=== PATIENT | female | born 1935 | race Caucasian/White ===

== ENCOUNTER 2017-02-06 14:00 | Inpatient (IN) | payer MEDICARE, OTHER ==
[~2017-02-06] VITALS: Ht 167.6 cm; Wt 68.9 kg
[~2017-02-06 14:00] MED LIST: CARB1TAB61 PO; DOXA2TAB2 PO; INSU3INS6 SUBCUT; MAGN400C PO; MIDO5TAB PO; MIRT15TA6 PO; TAMS-11 PO
[2017-02-06 15:00] VITALS: BP 100/52
[2017-02-06] MEDS ORDERED: TRAMADOL 50MG TABLET PO PRN (16:15)
[2017-02-06] MEDS ORDERED: NON FORMULARY PATIENT HOME MED EA XX SCH (16:30)
[2017-02-06] MEDS ORDERED: DEXTROSE 50% WATER 50ML SYRINGE IV PRN (16:45)
[2017-02-06] MEDS: REPAGLINIDE 1MG TABLET PO SCH (17:00)
[2017-02-06] MEDS: MIDODRINE HCL 5MG TABLET PO SCH (17:00)
[2017-02-06] MEDS: INSULIN LISPRO 100 UNITS/ML SUBCUT SCH ×2 (17:00→21:00)
[2017-02-06] MEDS: BLOOD SUGAR DIAGNOSTIC STRIP TEST SCH ×2 (17:18→21:06)
[2017-02-06 17:56] VITALS: BP 100/52
[2017-02-06] MEDS: CARBIDOPA/LEVODOPA 25/100MG TABLET PO SCH (18:19)
[2017-02-06] MEDS: ENTACAPONE 200MG TABLET PO SCH (18:20)
[2017-02-06 20:00] VITALS: BP 144/79
[2017-02-06] MEDS: QUETIAPINE FUMARATE 25MG TABLET PO SCH ×2 (21:00→21:35)
[2017-02-06] MEDS ORDERED: CARBIDOPA/LEVODOPA 25/100MG TABLET CR PO SCH (21:00)
[2017-02-06] MEDS ORDERED: CARBIDOPA/LEVODOPA 25/100MG TABLET PO SCH (21:00)
[2017-02-07 06:28] LABS: BASOPHILS % 0.3 % (0.0-2.0); EOSINOPHILS % 2.6 % (0.0-5.0); HEMATOCRIT. 38.4 % (36.0-48.0); HEMOGLOBIN. 13.1 g/dL (12.0-16.0); LYMPHOCYTES % 21.9 % (20.0-50.0); MEAN CORPUSCULAR HEMOGLOBIN 31.3 pg (28.0-32.0); MEAN PLATELET VOLUME 7.9 fl (7.4-10.4); MONOCYTES % 11.9 % (2.0-8.0); NEUTROPHILS % 63.3 % (40.0-76.0); PLATELET 293 x1000/uL (130-400); RED BLOOD CELL COUNT 4.18 mill/uL (4.2-5.4); RED CELL DISTRIBUTION WIDTH 13.1 % (11.6-14.6)
[2017-02-07] MEDS: BLOOD SUGAR DIAGNOSTIC STRIP TEST SCH ×4 (06:57→21:09)
[2017-02-07] MEDS: INSULIN LISPRO 100 UNITS/ML SUBCUT SCH ×5 (06:58→21:21)
[2017-02-07 07:05] LABS: CARBON DIOXIDE 23 mEq/L (21-32); CHLORIDE 109 mEq/L (98-107)
[2017-02-07 07:46] LABS: VITAMIN B12 SERUM > 2000 pg/mL (211-911)
[2017-02-07 08:07] VITALS: BP 159/84
[2017-02-07] MEDS: FENOFIBRATE NANOCRYSTALLIZED 145MG TABLET PO SCH (09:54)
[2017-02-07] MEDS: ASPIRIN 81MG TABLET PO SCH (09:55)
[2017-02-07] MEDS: CARBIDOPA/LEVODOPA 25/100MG TABLET PO SCH ×3 (09:55→18:11)
[2017-02-07] MEDS: REPAGLINIDE 1MG TABLET PO SCH ×3 (09:55→18:11)
[2017-02-07] MEDS: ENTACAPONE 200MG TABLET PO SCH ×3 (09:56→18:10)
[2017-02-07] MEDS: DOXAZOSIN MESYLATE 2MG TABLET PO SCH (09:56)
[2017-02-07] MEDS: MIDODRINE HCL 5MG TABLET PO SCH ×3 (10:03→18:14)
[2017-02-07] MEDS ORDERED: CARBIDOPA/LEVODOPA 25/100MG TABLET PO NR (13:30)
[2017-02-07] MEDS ORDERED: ENTACAPONE 200MG TABLET PO NR (13:30)
[2017-02-07] MEDS: QUETIAPINE FUMARATE 50MG TABLET PO SCH ×2 (15:42→21:19)
[2017-02-07] MEDS ORDERED: TEMAZEPAM 15MG CAPSULE PO PRN (19:15)
[2017-02-07 20:00] VITALS: BP 103/50
[2017-02-07] MEDS: ATORVASTATIN CALCIUM 20MG TABLET PO SCH (21:18)
[2017-02-07] MEDS: ASCORBIC ACID 500 MG TABLET PO SCH (21:18)
[2017-02-07] MEDS: [UNRECOGNIZED DRUG - OTHER] PO SCH (21:19)
[2017-02-07] MEDS: EZETIMIBE 10MG TABLET PO SCH (21:51)
[2017-02-08] MEDS: BLOOD SUGAR DIAGNOSTIC STRIP TEST SCH ×4 (05:38→21:55)
[2017-02-08] MEDS: INSULIN LISPRO 100 UNITS/ML SUBCUT SCH ×4 (05:39→21:00)
[2017-02-08] MEDS: CARBIDOPA/LEVODOPA 25/100MG TABLET PO SCH ×5 (05:40→17:26)
[2017-02-08 08:00] VITALS: BP 152/76
[2017-02-08] MEDS: ASPIRIN 81MG TABLET PO SCH (08:41)
[2017-02-08] MEDS: MULTIVITAMINS,THER W-MINERALS TABLET PO SCH (08:41)
[2017-02-08] MEDS: MIDODRINE HCL 5MG TABLET PO SCH ×3 (08:41→17:27)
[2017-02-08] MEDS: ASCORBIC ACID 500 MG TABLET PO SCH ×2 (08:41→21:55)
[2017-02-08] MEDS: FENOFIBRATE NANOCRYSTALLIZED 145MG TABLET PO SCH (08:41)
[2017-02-08] MEDS: DOXAZOSIN MESYLATE 2MG TABLET PO SCH (08:41)
[2017-02-08] MEDS: ENTACAPONE 200MG TABLET PO SCH ×6 (08:42→17:43)
[2017-02-08] MEDS: REPAGLINIDE 1MG TABLET PO SCH ×3 (08:42→17:26)
[2017-02-08] MEDS: ZINC SULFATE 220 MG ( 50 ) CAPSULE PO SCH (08:42)
[2017-02-08] MEDS ORDERED: HALOPERIDOL LACTATE 5MG/ML VIAL IM PRN (11:30)
[2017-02-08] MEDS: QUETIAPINE FUMARATE 50MG TABLET PO SCH ×2 (12:15→21:00)
[2017-02-08 20:00] VITALS: BP 129/83
[2017-02-08] MEDS: EZETIMIBE 10MG TABLET PO SCH (21:55)
[2017-02-08] MEDS: ATORVASTATIN CALCIUM 20MG TABLET PO SCH (21:55)
[2017-02-08] MEDS: [UNRECOGNIZED DRUG - OTHER] PO SCH (21:57)
[2017-02-09] MEDS: CARBIDOPA/LEVODOPA 25/100MG TABLET PO SCH ×5 (06:36→17:33)
[2017-02-09] MEDS: BLOOD SUGAR DIAGNOSTIC STRIP TEST SCH ×4 (06:37→21:14)
[2017-02-09] MEDS: INSULIN LISPRO 100 UNITS/ML SUBCUT SCH ×4 (06:49→21:14)
[2017-02-09 08:00] VITALS: BP 134/64
[2017-02-09] MEDS: MULTIVITAMINS,THER W-MINERALS TABLET PO SCH (08:12)
[2017-02-09] MEDS: ASCORBIC ACID 500 MG TABLET PO SCH ×2 (08:12→21:14)
[2017-02-09] MEDS: FENOFIBRATE NANOCRYSTALLIZED 145MG TABLET PO SCH (08:12)
[2017-02-09] MEDS: REPAGLINIDE 1MG TABLET PO SCH ×3 (08:13→17:00)
[2017-02-09] MEDS: ZINC SULFATE 220 MG ( 50 ) CAPSULE PO SCH (08:13)
[2017-02-09] MEDS: ENTACAPONE 200MG TABLET PO SCH ×4 (08:13→17:33)
[2017-02-09] MEDS: ASPIRIN 81MG TABLET PO SCH (08:13)
[2017-02-09] MEDS: DOXAZOSIN MESYLATE 2MG TABLET PO SCH (08:14)
[2017-02-09] MEDS: MIDODRINE HCL 5MG TABLET PO SCH ×3 (08:24→17:33)
[2017-02-09] MEDS: QUETIAPINE FUMARATE 50MG TABLET PO SCH ×2 (14:51→21:14)
[2017-02-09 20:00] VITALS: BP 124/68
[2017-02-09] MEDS: EZETIMIBE 10MG TABLET PO SCH (21:14)
[2017-02-09] MEDS: ATORVASTATIN CALCIUM 20MG TABLET PO SCH (21:14)
[2017-02-09] MEDS: [UNRECOGNIZED DRUG - OTHER] PO SCH (21:15)
[2017-02-10] MEDS: CARBIDOPA/LEVODOPA 25/100MG TABLET PO SCH ×5 (05:10→18:06)
[2017-02-10] MEDS: BLOOD SUGAR DIAGNOSTIC STRIP TEST SCH ×4 (06:20→21:31)
[2017-02-10] MEDS: INSULIN LISPRO 100 UNITS/ML SUBCUT SCH ×4 (06:54→21:31)
[2017-02-10 08:00] VITALS: BP 122/62
[2017-02-10] MEDS: MIDODRINE HCL 5MG TABLET PO SCH ×3 (09:00→18:07)
[2017-02-10] MEDS: ZINC SULFATE 220 MG ( 50 ) CAPSULE PO SCH (09:02)
[2017-02-10] MEDS: FENOFIBRATE NANOCRYSTALLIZED 145MG TABLET PO SCH (09:02)
[2017-02-10] MEDS: MULTIVITAMINS,THER W-MINERALS TABLET PO SCH (09:04)
[2017-02-10] MEDS: ASCORBIC ACID 500 MG TABLET PO SCH ×2 (09:04→21:12)
[2017-02-10] MEDS: REPAGLINIDE 1MG TABLET PO SCH ×3 (09:04→18:07)
[2017-02-10] MEDS: DOXAZOSIN MESYLATE 2MG TABLET PO SCH (09:04)
[2017-02-10] MEDS: ENTACAPONE 200MG TABLET PO SCH ×4 (09:04→18:06)
[2017-02-10] MEDS: ASPIRIN 81MG TABLET PO SCH (09:04)
[2017-02-10] MEDS ORDERED: LACTULOSE 20G/30ML UDC PO NR (10:30)
[2017-02-10] MEDS: QUETIAPINE FUMARATE 50MG TABLET PO SCH ×2 (14:41→21:13)
[2017-02-10 19:00] VITALS: BP 113/53
[2017-02-10 21:08] LABS: CLARITY URINE CLOUDY (CLEAR); COLOR URINE DARK YELLOW (YELLOW); GLUCOSE URINE 3+ (NEGATIVE); KETONES URINE TRACE (NEGATIVE); LEUKOCYTE ESTERASE URINE TRACE (NEGATIVE); NITRITE URINE NEGATIVE (NEGATIVE); OCCULT BLOOD URINE 3+ (NEGATIVE); PROTEIN URINE 1+ (NEGATIVE); SPECIFIC GRAVITY URINE 1.033 (1.005-1.030); UROBILINOGEN URINE 0.2 E.U./dL (0.2-1.0)
[2017-02-10] MEDS: ATORVASTATIN CALCIUM 20MG TABLET PO SCH (21:12)
[2017-02-10] MEDS: EZETIMIBE 10MG TABLET PO SCH (21:13)
[2017-02-10] MEDS: [UNRECOGNIZED DRUG - OTHER] PO SCH (21:15)
[2017-02-10] MEDS ORDERED: CEFTRIAXONE 2 G in DEXTROSE 5% WATER 50 ML IV SCH (22:00)
[2017-02-10] MEDS ORDERED: CEFTRIAXONE 2 G PREMIX 50 ML IV SCH (22:00)
[2017-02-10 23:10] VITALS: BP 113/53
[2017-02-11] VITALS: BP 126/70
[2017-02-11 04:00] VITALS: BP 146/79
== END 2017-02-10 23:20 | disposition short-term general hospital (02) | DRG 56 ==
LOC: 6EST 02-10 23:20
PROVIDERS: ADMIT Psychiatry & Neurology Neurology; ATTEND Psychiatry & Neurology Neurology
DX: G20 Parkinson's disease (principal); E43 Unspecified severe protein-calorie malnutrition; G93.89 Other specified disorders of brain; E11.649 Type 2 diabetes mellitus with hypoglycemia without coma; N39.0 Urinary tract infection, site not specified; R13.10 Dysphagia, unspecified; N31.9 Neuromuscular dysfunction of bladder, unspecified; F02.80 Dementia in other diseases classified elsewhere, unspecified severity, without behavioral disturbance, psychotic disturbance, mood disturbance, and anxiety; J44.9 Chronic obstructive pulmonary disease, unspecified; L89.90 Pressure ulcer of unspecified site, unspecified stage; R47.02 Dysphasia; N30.20 Other chronic cystitis without hematuria; R33.9 Retention of urine, unspecified; R32 Unspecified urinary incontinence; G89.4 Chronic pain syndrome; G47.00 Insomnia, unspecified; G24.9 Dystonia, unspecified; F41.9 Anxiety disorder, unspecified; F29 Unspecified psychosis not due to a substance or known physiological condition; R62.7 Adult failure to thrive; R21 Rash and other nonspecific skin eruption; M19.90 Unspecified osteoarthritis, unspecified site; F32.9 Major depressive disorder, single episode, unspecified; K59.00 Constipation, unspecified; Z87.01 Personal history of pneumonia (recurrent); Z68.24 Body mass index [BMI] 24.0-24.9, adult; Z79.899 Other long term (current) drug therapy; Z90.49 Acquired absence of other specified parts of digestive tract; Z98.49 Cataract extraction status, unspecified eye; Z90.89 Acquired absence of other organs
CPT/HCPCS: 36415; 80048; 81001; 82607; 82962; 84443; 85025; 87086; 92523; 92610; 93970; 97163; 97167; 97530; 97535; A6261; C1893; J0696; J1630; J1815; J7050; J7060

== ENCOUNTER 2017-02-10 23:20 | Inpatient (IN) | payer MEDICARE, OTHER ==
[~2017-02-10] VITALS: Ht 165.1 cm; Wt 68.9 kg
[2017-02-11] VITALS: BP 128/79
[2017-02-11] MEDS ORDERED: DEXTROSE 50% WATER 50ML SYRINGE IV PRN (03:30)
[2017-02-11] MEDS ORDERED: CARBIDOPA/LEVODOPA 25/100MG TABLET PO SCH (06:00)
[2017-02-11] MEDS ORDERED: TRAMADOL 50MG TABLET PO PRN (06:30)
[2017-02-11] MEDS: BLOOD SUGAR DIAGNOSTIC STRIP TEST SCH ×4 (06:40→21:00)
[2017-02-11 08:00] VITALS: BP 127/64
[2017-02-11] MEDS ORDERED: MIDODRINE HCL 5MG TABLET PO SCH (09:00)
[2017-02-11] MEDS ORDERED: DOXAZOSIN MESYLATE 2MG TABLET PO SCH (09:00)
[2017-02-11 09:25] LABS: BASOPHILS % 0.4 % (0.0-2.0); EOSINOPHILS % 0.2 % (0.0-5.0); HEMATOCRIT. 38.5 % (36.0-48.0); LYMPHOCYTES % 8.7 % (20.0-50.0); MEAN CORPUSCULAR VOLUME 91.8 fL (81.0-99.0); MEAN PLATELET VOLUME 8.1 fl (7.4-10.4); MONOCYTES % 4.5 % (2.0-8.0); NEUTROPHILS % 86.2 % (40.0-76.0); PLATELET 317 x1000/uL (130-400); RED CELL DISTRIBUTION WIDTH 13.3 % (11.6-14.6)
[2017-02-11] MEDS: REPAGLINIDE 1MG TABLET PO SCH ×3 (09:25→17:33)
[2017-02-11] MEDS: ASCORBIC ACID 500 MG TABLET PO SCH ×2 (09:27→20:05)
[2017-02-11] MEDS: ASPIRIN 81MG EC TABLET PO SCH (09:27)
[2017-02-11] MEDS: ENTACAPONE 200MG TABLET PO SCH ×4 (09:27→18:48)
[2017-02-11] MEDS: DOXAZOSIN MESYLATE 2MG TABLET PO SCH (09:28)
[2017-02-11] MEDS: MULTIVITAMINS,THER W-MINERALS TABLET PO SCH (09:28)
[2017-02-11] MEDS: MIDODRINE HCL 5MG TABLET PO SCH ×3 (09:29→17:33)
[2017-02-11] MEDS: ZINC SULFATE 220 MG ( 50 ) CAPSULE PO SCH (09:29)
[2017-02-11] MEDS: CARBIDOPA/LEVODOPA 25/100MG TABLET PO SCH ×4 (09:30→18:49)
[2017-02-11] MEDS: FENOFIBRATE NANOCRYSTALLIZED 145MG TABLET PO SCH (09:39)
[2017-02-11 09:50] LABS: CARBON DIOXIDE 26 mEq/L (21-32); CHLORIDE 108 mEq/L (98-107)
[2017-02-11] MEDS: INSULIN LISPRO 100 UNITS/ML SUBCUT SCH ×4 (09:53→21:00)
[2017-02-11 12:00] VITALS: BP 126/70
[2017-02-11] MEDS: QUETIAPINE FUMARATE 50MG TABLET PO SCH ×2 (13:04→20:05)
[2017-02-11 13:46] LABS: VITAMIN B12 SERUM > 2000.0 pg/mL (211-911)
[2017-02-11 16:00] VITALS: BP 118/60
[2017-02-11] MEDS ORDERED: IPRATROPIUM/ALBUTEROL 0.5-3(2.5)MG/3ML NEB HHN PRN (17:30)
[2017-02-11] MEDS ORDERED: VANCOMYCIN 1250MG in DEXTROSE 5% WATER 250ML IV NR (18:00)
[2017-02-11 20:00] VITALS: BP 121/55
[2017-02-11] MEDS: ATORVASTATIN CALCIUM 20MG TABLET PO SCH (20:04)
[2017-02-11] MEDS: EZETIMIBE 10MG TABLET PO SCH (20:05)
[2017-02-11] MEDS: CEFEPIME 1,000 MG in DEXTROSE 5% WATER 50 ML IV SCH (20:07)
[2017-02-11] MEDS: METRONIDAZOLE 500 MG PREMIX 100 ML IV SCH (20:07)
[2017-02-11] MEDS ORDERED: NON FORMULARY PATIENT HOME MED EA XX SCH (21:00)
[2017-02-11] MEDS ORDERED: TEMAZEPAM 15MG CAPSULE PO PRN (21:00)
[2017-02-12] VITALS: BP 141/75
[2017-02-12] MEDS ORDERED: CEFTRIAXONE 2 G in DEXTROSE 5% WATER 50 ML IV SCH ×2
[2017-02-12 04:00] VITALS: BP 120/66
[2017-02-12] MEDS: BLOOD SUGAR DIAGNOSTIC STRIP TEST SCH ×4 (06:08→21:53)
[2017-02-12] MEDS: CARBIDOPA/LEVODOPA 25/100MG TABLET PO SCH ×5 (06:08→19:01)
[2017-02-12 06:57] LABS: BASOPHILS % 0.3 % (0.0-2.0); EOSINOPHILS % 0.7 % (0.0-5.0); HEMATOCRIT. 38.3 % (36.0-48.0); HEMOGLOBIN. 12.7 g/dL (12.0-16.0); LYMPHOCYTES % 8.6 % (20.0-50.0); MEAN CORPUSCULAR VOLUME 93.7 fL (81.0-99.0); MEAN PLATELET VOLUME 8.9 fl (7.4-10.4); MONOCYTES % 5.4 % (2.0-8.0); RED BLOOD CELL COUNT 4.09 mill/uL (4.2-5.4); RED CELL DISTRIBUTION WIDTH 13.4 % (11.6-14.6)
[2017-02-12 07:10] LABS: CARBON DIOXIDE 27 mEq/L (21-32); CHLORIDE 110 mEq/L (98-107)
[2017-02-12 08:00] VITALS: BP 141/71
[2017-02-12] MEDS: INSULIN LISPRO 100 UNITS/ML SUBCUT SCH ×4 (08:08→23:08)
[2017-02-12] MEDS: CEFEPIME 1,000 MG in DEXTROSE 5% WATER 50 ML IV SCH (08:10)
[2017-02-12] MEDS: REPAGLINIDE 1MG TABLET PO SCH ×3 (08:20→19:00)
[2017-02-12] MEDS: ZINC SULFATE 220 MG ( 50 ) CAPSULE PO SCH (08:20)
[2017-02-12] MEDS: MULTIVITAMINS,THER W-MINERALS TABLET PO SCH (08:21)
[2017-02-12] MEDS: ASCORBIC ACID 500 MG TABLET PO SCH ×2 (08:21→22:01)
[2017-02-12] MEDS: FENOFIBRATE NANOCRYSTALLIZED 145MG TABLET PO SCH (08:21)
[2017-02-12] MEDS: MIDODRINE HCL 5MG TABLET PO SCH ×3 (08:22→19:00)
[2017-02-12] MEDS: DOXAZOSIN MESYLATE 2MG TABLET PO SCH (08:22)
[2017-02-12] MEDS: ASPIRIN 81MG EC TABLET PO SCH (08:22)
[2017-02-12] MEDS: ENTACAPONE 200MG TABLET PO SCH ×4 (08:23→19:01)
[2017-02-12] MEDS: METRONIDAZOLE 500 MG PREMIX 100 ML IV SCH (09:18)
[2017-02-12 12:00] VITALS: BP 145/81
[2017-02-12 12:13] LABS: PLATELET 276 x1000/uL (130-400)
[2017-02-12] MEDS: VANCOMYCIN 1 G PREMIX 200 ML IV SCH (13:10)
[2017-02-12] MEDS: QUETIAPINE FUMARATE 50MG TABLET PO SCH ×2 (13:17→21:48)
[2017-02-12] MEDS: MEROPENEM 1,000 MG in SODIUM CHLORIDE 0.9% 100 ML IV SCH ×2 (15:25→23:26)
[2017-02-12 16:00] VITALS: BP 150/69
[2017-02-12 20:00] VITALS: BP 160/83
[2017-02-12] MEDS ORDERED: METRONIDAZOLE 500 MG PREMIX 100 ML IV SCH (21:00)
[2017-02-12] MEDS: EZETIMIBE 10MG TABLET PO SCH (21:48)
[2017-02-12] MEDS: ATORVASTATIN CALCIUM 20MG TABLET PO SCH (21:48)
[2017-02-12] MEDS ORDERED: ENTACAPONE 200MG TABLET PO SCH (22:30)
[2017-02-12] MEDS ORDERED: CARBIDOPA/LEVODOPA 25/100MG TABLET PO SCH (22:30)
[2017-02-13] VITALS: BP 130/64
[2017-02-13 04:00] VITALS: BP 116/68
[2017-02-13 06:00] LABS: BASOPHILS % 0.3 % (0.0-2.0); EOSINOPHILS % 0.4 % (0.0-5.0); HEMATOCRIT. 40.3 % (36.0-48.0); HEMOGLOBIN. 13.1 g/dL (12.0-16.0); MEAN CORPUSCULAR HEMOGLOBIN 30.4 pg (28.0-32.0); MEAN CORPUSCULAR VOLUME 93.8 fL (81.0-99.0); MEAN PLATELET VOLUME 8.3 fl (7.4-10.4); MONOCYTES % 7.9 % (2.0-8.0); NEUTROPHILS % 81.4 % (40.0-76.0); PLATELET 292 x1000/uL (130-400); RED BLOOD CELL COUNT 4.29 mill/uL (4.2-5.4); RED CELL DISTRIBUTION WIDTH 13.5 % (11.6-14.6)
[2017-02-13] MEDS: CARBIDOPA/LEVODOPA 25/100MG TABLET PO SCH ×6 (06:12→17:26)
[2017-02-13 06:13] LABS: CHLORIDE 110 mEq/L (98-107)
[2017-02-13] MEDS: VANCOMYCIN 1 G PREMIX 200 ML IV SCH (06:13)
[2017-02-13] MEDS: MEROPENEM 1,000 MG in SODIUM CHLORIDE 0.9% 100 ML IV SCH ×3 (06:13→22:13)
[2017-02-13 06:22] LABS: CARBON DIOXIDE 25 mEq/L (21-32)
[2017-02-13] MEDS: BLOOD SUGAR DIAGNOSTIC STRIP TEST SCH ×4 (06:37→21:37)
[2017-02-13] MEDS: INSULIN LISPRO 100 UNITS/ML SUBCUT SCH ×4 (07:45→22:00)
[2017-02-13 08:00] VITALS: BP 167/69
[2017-02-13] MEDS ORDERED: ACETAMINOPHEN 650MG/20.3ML UDC PO PRN (08:30)
[2017-02-13] MEDS: ASCORBIC ACID 500 MG TABLET PO SCH ×2 (09:07→21:48)
[2017-02-13] MEDS: MIDODRINE HCL 5MG TABLET PO SCH ×3 (09:07→17:27)
[2017-02-13] MEDS: MULTIVITAMINS,THER W-MINERALS TABLET PO SCH (09:07)
[2017-02-13] MEDS: FENOFIBRATE NANOCRYSTALLIZED 145MG TABLET PO SCH (09:07)
[2017-02-13] MEDS: REPAGLINIDE 1MG TABLET PO SCH ×3 (09:07→17:26)
[2017-02-13] MEDS: ENTACAPONE 200MG TABLET PO SCH ×5 (09:07→17:25)
[2017-02-13] MEDS: ZINC SULFATE 220 MG ( 50 ) CAPSULE PO SCH (09:07)
[2017-02-13] MEDS: DOXAZOSIN MESYLATE 2MG TABLET PO SCH (09:08)
[2017-02-13] MEDS: ASPIRIN 81MG EC TABLET PO SCH (09:08)
[2017-02-13 12:00] VITALS: BP 124/64
[2017-02-13] MEDS: QUETIAPINE FUMARATE 50MG TABLET PO SCH ×2 (13:00→21:49)
[2017-02-13 16:00] VITALS: BP 113/54
[2017-02-13 20:00] VITALS: BP 112/61
[2017-02-13] MEDS ORDERED: CARBIDOPA/LEVODOPA 25/100MG TABLET PO SCH (21:00)
[2017-02-13] MEDS ORDERED: ENTACAPONE 200MG TABLET PO SCH (21:00)
[2017-02-13] MEDS: ATORVASTATIN CALCIUM 20MG TABLET PO SCH (21:49)
[2017-02-13] MEDS: EZETIMIBE 10MG TABLET PO SCH (21:56)
[2017-02-14] VITALS: BP 127/67
[2017-02-14 04:00] VITALS: BP 159/78
[2017-02-14 05:30] LABS: BASOPHILS % 0.3 % (0.0-2.0); EOSINOPHILS % 2.4 % (0.0-5.0); HEMATOCRIT. 38.7 % (36.0-48.0); LYMPHOCYTES % 18.9 % (20.0-50.0); MEAN CORPUSCULAR HEMOGLOBIN 30.9 pg (28.0-32.0); MEAN CORPUSCULAR VOLUME 92.2 fL (81.0-99.0); MEAN PLATELET VOLUME 8.3 fl (7.4-10.4); MONOCYTES % 10.5 % (2.0-8.0); NEUTROPHILS % 67.9 % (40.0-76.0); PLATELET 326 x1000/uL (130-400); RED CELL DISTRIBUTION WIDTH 13.3 % (11.6-14.6)
[2017-02-14] MEDS: MEROPENEM 1,000 MG in SODIUM CHLORIDE 0.9% 100 ML IV SCH ×2 (05:42→13:47)
[2017-02-14] MEDS ORDERED: CARBIDOPA/LEVODOPA 25/100MG TABLET PO SCH (06:00)
[2017-02-14] MEDS ORDERED: ENTACAPONE 200MG TABLET PO SCH (06:00)
[2017-02-14] MEDS: BLOOD SUGAR DIAGNOSTIC STRIP TEST SCH ×3 (07:31→17:20)
[2017-02-14] MEDS: REPAGLINIDE 1MG TABLET PO SCH ×3 (07:53→17:55)
[2017-02-14] MEDS: INSULIN LISPRO 100 UNITS/ML SUBCUT SCH ×3 (07:59→18:09)
[2017-02-14 08:00] VITALS: BP 153/78
[2017-02-14 08:26] LABS: CARBON DIOXIDE 27 mEq/L (21-32); CHLORIDE 108 mEq/L (98-107)
[2017-02-14] MEDS: CARBIDOPA/LEVODOPA 25/100MG TABLET PO SCH ×4 (09:00→17:55)
[2017-02-14] MEDS: DOXAZOSIN MESYLATE 2MG TABLET PO SCH (09:10)
[2017-02-14] MEDS: MIDODRINE HCL 5MG TABLET PO SCH ×3 (09:10→17:55)
[2017-02-14] MEDS: ASCORBIC ACID 500 MG TABLET PO SCH (09:10)
[2017-02-14] MEDS: FENOFIBRATE NANOCRYSTALLIZED 145MG TABLET PO SCH (09:10)
[2017-02-14] MEDS: ZINC SULFATE 220 MG ( 50 ) CAPSULE PO SCH (09:10)
[2017-02-14] MEDS: MULTIVITAMINS,THER W-MINERALS TABLET PO SCH (09:11)
[2017-02-14] MEDS: ASPIRIN 81MG EC TABLET PO SCH (09:11)
[2017-02-14] MEDS: ENTACAPONE 200MG TABLET PO SCH ×4 (09:11→17:55)
[2017-02-14 12:00] VITALS: BP 119/70
[2017-02-14] MEDS: QUETIAPINE FUMARATE 50MG TABLET PO SCH (14:10)
[2017-02-14 16:00] VITALS: BP 127/62
[2017-02-14] MEDS ORDERED: CEFTRIAXONE 1 G PREMIX 50 ML IV SCH (17:00)
[2017-02-14 18:22] VITALS: BP 127/62
== END 2017-02-14 21:08 | DRG 871 ==
LOC: 6EST 23:20
PROVIDERS: ADMIT Internal Medicine Critical Care Medicine; ATTEND Internal Medicine Critical Care Medicine
DX: A41.9 Sepsis, unspecified organism (principal); E43 Unspecified severe protein-calorie malnutrition; J96.00 Acute respiratory failure, unspecified whether with hypoxia or hypercapnia; E11.649 Type 2 diabetes mellitus with hypoglycemia without coma; J44.0 Chronic obstructive pulmonary disease with (acute) lower respiratory infection; G20 Parkinson's disease; F03.90 Unspecified dementia, unspecified severity, without behavioral disturbance, psychotic disturbance, mood disturbance, and anxiety; R13.10 Dysphagia, unspecified; N39.0 Urinary tract infection, site not specified; G25.9 Extrapyramidal and movement disorder, unspecified; G24.9 Dystonia, unspecified; F29 Unspecified psychosis not due to a substance or known physiological condition; F41.9 Anxiety disorder, unspecified; G47.00 Insomnia, unspecified; G89.4 Chronic pain syndrome; I10 Essential (primary) hypertension; K59.00 Constipation, unspecified; L89.90 Pressure ulcer of unspecified site, unspecified stage; R32 Unspecified urinary incontinence; R47.02 Dysphasia; R62.7 Adult failure to thrive; Z16.24 Resistance to multiple antibiotics; Z68.25 Body mass index [BMI] 25.0-25.9, adult; Z90.49 Acquired absence of other specified parts of digestive tract; Z98.49 Cataract extraction status, unspecified eye
CPT/HCPCS: 36415; 70551; 71010; 80048; 80076; 80202; 82607; 82962; 83690; 84443; 85025; 87040; 92610; 97112; 97162; 97166; 97530; C1893; J0692; J0696; J1815; J2185; J3370; J3490; J7050; J7060

== ENCOUNTER 2017-04-16 14:34 | Inpatient (IN) | payer MEDICARE, OTHER ==
[~2017-04-16] VITALS: Ht 160 cm; Wt 57.2 kg
[2017-04-16] MEDS ORDERED: ZET10 PO (14:47)
[2017-04-16] MEDS ORDERED: BENZ1TAB7 PO (14:47)
[2017-04-16] MEDS ORDERED: ATOR20TA65 PO (14:47)
[2017-04-16] MEDS ORDERED: DOCU-138 PO (14:47)
[2017-04-16] MEDS ORDERED: REPA2TAB8 PO (14:47)
[2017-04-16] MEDS ORDERED: LISPRO (14:47)
[2017-04-16] MEDS ORDERED: CARB-32 PO (14:47)
[2017-04-16] MEDS ORDERED: FENO145T19 PO (14:47)
[2017-04-16] MEDS ORDERED: ASPI-1159 PO (14:47)
[2017-04-16] MEDS ORDERED: MIDORINE (14:47)
[2017-04-16] MEDS ORDERED: DOXA2TAB2 PO (14:47)
[2017-04-16] MEDS ORDERED: QUET25TA PO (14:47)
[2017-04-16] MEDS ORDERED: ENTA200T2 PO (14:47)
[2017-04-16] MEDS ORDERED: SODIUM CHLORIDE 0.9% 1,000 ML IV ONE (16:33)
[2017-04-16 16:58] LABS: BASOPHILS % 0.3 % (0.0-2.0); EOSINOPHILS % 0.1 % (0.0-5.0); HEMATOCRIT. 45.4 % (36.0-48.0); LYMPHOCYTES % 7.2 % (20.0-50.0); MEAN CORPUSCULAR HEMOGLOBIN 30.2 pg (28.0-32.0); MEAN CORPUSCULAR VOLUME 91.7 fL (81.0-99.0); MEAN PLATELET VOLUME 8.9 fl (7.4-10.4); MONOCYTES % 5.9 % (2.0-8.0); NEUTROPHILS % 86.5 % (40.0-76.0); PLATELET 224 x1000/uL (130-400); RED BLOOD CELL COUNT 4.95 mill/uL (4.2-5.4)
[2017-04-16 17:03] LABS: CHLORIDE 116 mEq/L (98-107); INR 1.2; PROTHROMBIN TIME 12.3 sec (9.4-11.6)
[2017-04-16 17:05] LABS: CARBON DIOXIDE 24 mEq/L (21-32)
[2017-04-16 17:07] LABS: AMMONIA 19 uMol/L (<32)
[2017-04-16 17:13] LABS: CREATINE KINASE 46 IU/L (26-192); TROPONIN I < 0.02 ng/mL (0.00-0.04)
[2017-04-16 18:07] LABS: BG BASE EXCESS 0.6 mmol/L (-2.0-2.0); BG CARBOXYHEMOGLOBIN 0.4 % (0.5-1.5); BG DEOXYHEMOGLOBIN 2.1 % (0.0-5.0); BG FRACTION INSPIRED OXYGEN 28; BG HCO3 ACT 24.8 mmol/L (22.0-26.0); BG METHEMOGLOBIN 0.3 % (0.0-1.5); BG OXYGEN SATURATION 97.9 % (92.0-98.5); BG OXYHEMOGLOBIN 97.2 % (94.0-97.0); BG PCO2 38.5 mmHg (35.0-45.0); BG PH 7.427 (7.350-7.450); BG PO2 111.5 mmHg (75.0-100.0); BG SAMPLE SITE RIGHT BRACHIAL; BG TOTAL HEMOGLOBIN 13.9 g/dL (12.0-18.0); BG VENT MODE NASAL CANNULA
[2017-04-16] MEDS ORDERED: ONDANSETRON HCL 4MG/2ML VIAL IV PRN (19:30)
[2017-04-16] MEDS ORDERED: DOCUSATE SODIUM 100MG CAPSULE PO PRN (19:30)
[2017-04-16] MEDS ORDERED: IPRATROPIUM/ALBUTEROL 0.5-3(2.5)MG/3ML NEB INH PRN (19:30)
[2017-04-16] MEDS ORDERED: DEXT 5%/0.45% NACL 1000ML 1,000 ML IV SCH (20:45)
[2017-04-16 21:00] VITALS: BP_SYST 119; BP_SYST 132; BP_DIAS 69; BP_DIAS 93
[2017-04-16] MEDS ORDERED: DEXTROSE 50% WATER 50ML SYRINGE IV PRN (21:15)
[2017-04-16 21:41] LABS: CLARITY URINE CLOUDY (CLEAR); COLOR URINE DARK YELLOW (YELLOW); GLUCOSE URINE 1+ (NEGATIVE); KETONES URINE TRACE (NEGATIVE); LEUKOCYTE ESTERASE URINE 2+ (NEGATIVE); NITRITE URINE NEGATIVE (NEGATIVE); OCCULT BLOOD URINE 3+ (NEGATIVE); PROTEIN URINE 1+ (NEGATIVE); SPECIFIC GRAVITY URINE 1.023 (1.005-1.030); UROBILINOGEN URINE 0.2 E.U./dL (0.2-1.0)
[2017-04-16 22:00] VITALS: BP 106/68
[2017-04-16] MEDS: DEXT 5%/0.45% NACL 1000ML 1,000 ML IV SCH (22:04)
[2017-04-16] MEDS: BENZTROPINE MESYLATE 1MG TABLET PO SCH (22:14)
[2017-04-16] MEDS: CEFTRIAXONE 1 G PREMIX 50 ML IV SCH (22:24)
[2017-04-17] VITALS (12 sets, daily range): BP systolic 101–142; BP diastolic 60–109
[2017-04-17 06:35] LABS: BASOPHILS % 0.2 % (0.0-2.0); EOSINOPHILS % 0.2 % (0.0-5.0); HEMATOCRIT. 40.6 % (36.0-48.0); LYMPHOCYTES % 10.7 % (20.0-50.0); MEAN CORPUSCULAR HEMOGLOBIN 29.9 pg (28.0-32.0); MEAN CORPUSCULAR VOLUME 92.9 fL (81.0-99.0); MEAN PLATELET VOLUME 9.3 fl (7.4-10.4); MONOCYTES % 7.4 % (2.0-8.0); NEUTROPHILS % 81.5 % (40.0-76.0); PLATELET 191 x1000/uL (130-400); RED BLOOD CELL COUNT 4.37 mill/uL (4.2-5.4); RED CELL DISTRIBUTION WIDTH 14.2 % (11.6-14.6)
[2017-04-17] MEDS: REPAGLINIDE 1MG TABLET PO SCH ×3 (06:50→17:05)
[2017-04-17 07:20] LABS: CARBON DIOXIDE 24 mEq/L (21-32); CHLORIDE 119 mEq/L (98-107)
[2017-04-17] MEDS: BLOOD SUGAR DIAGNOSTIC STRIP TEST SCH ×4 (07:28→21:31)
[2017-04-17] MEDS: DEXT 5%/0.45% NACL 1000ML 1,000 ML IV SCH ×2 (08:00→17:02)
[2017-04-17] MEDS: CARBIDOPA/LEVODOPA 25/100MG TABLET PO SCH ×4 (08:12→21:28)
[2017-04-17] MEDS: ENTACAPONE 200MG TABLET PO SCH ×3 (08:13→16:07)
[2017-04-17] MEDS: LACTOBACILLUS GG CAPSULE PO SCH (08:13)
[2017-04-17] MEDS: BENZTROPINE MESYLATE 1MG TABLET PO SCH ×3 (08:13→16:07)
[2017-04-17] MEDS: INSULIN LISPRO 100 UNITS/ML SUBCUT SCH ×4 (08:13→21:00)
[2017-04-17] MEDS: ASPIRIN 81MG EC TABLET PO SCH (08:27)
[2017-04-17] MEDS: FENOFIBRATE NANOCRYSTALLIZED 145MG TABLET PO SCH (08:27)
[2017-04-17] MEDS: MIDODRINE HCL 5MG TABLET PO SCH ×3 (08:27→16:07)
[2017-04-17] MEDS: QUETIAPINE FUMARATE 25MG TABLET PO SCH ×2 (08:27→16:07)
[2017-04-17] MEDS: MULTIVITAMINS,THER W-MINERALS TABLET PO SCH (08:27)
[2017-04-17] MEDS: ASCORBIC ACID 250 MG TABLET PO SCH (08:28)
[2017-04-17] MEDS ORDERED: SIMETHICONE 40 MG/0.6 ML 30ML ONE (13:26)
[2017-04-17] MEDS ORDERED: MIDAZOLAM HCL 5 MG/5 ML VIAL ONE (18:25)
[2017-04-17] MEDS ORDERED: FENTANYL CITRATE/PF 50MCG/ML 2ML VIAL ONE (18:25)
[2017-04-17] MEDS ORDERED: MIDAZOLAM HCL 5 MG/5 ML VIAL IV PRN (18:44)
[2017-04-17] MEDS: ATORVASTATIN CALCIUM 20MG TABLET PO SCH (21:29)
[2017-04-17] MEDS: DOXAZOSIN MESYLATE 2MG TABLET PO SCH (21:30)
[2017-04-17] MEDS: CEFTRIAXONE 1 G PREMIX 50 ML IV SCH (21:31)
[2017-04-17] MEDS: EZETIMIBE 10MG TABLET PO SCH (21:37)
[2017-04-18] VITALS (9 sets, daily range): BP systolic 89–130; BP diastolic 38–90
[2017-04-18] MEDS: DEXT 5%/0.45% NACL 1000ML 1,000 ML IV SCH ×3 (07:30→22:01)
[2017-04-18] MEDS: REPAGLINIDE 1MG TABLET PO SCH ×3 (07:30→17:05)
[2017-04-18] MEDS: BLOOD SUGAR DIAGNOSTIC STRIP TEST SCH ×4 (07:30→21:39)
[2017-04-18] MEDS: INSULIN LISPRO 100 UNITS/ML SUBCUT SCH ×4 (08:00→21:51)
[2017-04-18] MEDS: MIDODRINE HCL 5MG TABLET PO SCH ×3 (09:00→17:05)
[2017-04-18] MEDS: LACTOBACILLUS GG CAPSULE PO SCH (09:25)
[2017-04-18] MEDS: BENZTROPINE MESYLATE 1MG TABLET PO SCH ×3 (09:25→17:05)
[2017-04-18] MEDS: ENTACAPONE 200MG TABLET PO SCH ×3 (09:25→17:04)
[2017-04-18] MEDS: ASPIRIN 81MG EC TABLET PO SCH (09:25)
[2017-04-18] MEDS: CARBIDOPA/LEVODOPA 25/100MG TABLET PO SCH ×4 (09:26→21:40)
[2017-04-18] MEDS: FENOFIBRATE NANOCRYSTALLIZED 145MG TABLET PO SCH (09:27)
[2017-04-18] MEDS: QUETIAPINE FUMARATE 25MG TABLET PO SCH ×2 (09:27→17:05)
[2017-04-18] MEDS: MULTIVITAMINS,THER W-MINERALS TABLET PO SCH (09:27)
[2017-04-18] MEDS: ASCORBIC ACID 250 MG TABLET PO SCH (09:28)
[2017-04-18] MEDS: APIXABAN 5 MG TABLET PO SCH ×2 (17:05→21:31)
[2017-04-18] MEDS: DOXAZOSIN MESYLATE 2MG TABLET PO SCH (21:00)
[2017-04-18] MEDS: ATORVASTATIN CALCIUM 20MG TABLET PO SCH (21:32)
[2017-04-18] MEDS: EZETIMIBE 10MG TABLET PO SCH (21:32)
[2017-04-18] MEDS: CEFTRIAXONE 1 G PREMIX 50 ML IV SCH (21:40)
[2017-04-19] VITALS (12 sets, daily range): BP systolic 94–138; BP diastolic 48–84
[2017-04-19] MEDS: BLOOD SUGAR DIAGNOSTIC STRIP TEST SCH ×4 (07:30→21:50)
[2017-04-19] MEDS: DEXT 5%/0.45% NACL 1000ML 1,000 ML IV SCH ×2 (09:00→18:05)
[2017-04-19] MEDS: CARBIDOPA/LEVODOPA 25/100MG TABLET PO SCH ×4 (09:19→21:59)
[2017-04-19] MEDS: MULTIVITAMINS,THER W-MINERALS TABLET PO SCH (09:19)
[2017-04-19] MEDS: ASPIRIN 81MG EC TABLET PO SCH (09:20)
[2017-04-19] MEDS: LACTOBACILLUS GG CAPSULE PO SCH (09:20)
[2017-04-19] MEDS: QUETIAPINE FUMARATE 25MG TABLET PO SCH ×2 (09:20→18:04)
[2017-04-19] MEDS: MIDODRINE HCL 5MG TABLET PO SCH ×3 (09:20→18:04)
[2017-04-19] MEDS: ASCORBIC ACID 250 MG TABLET PO SCH (09:20)
[2017-04-19] MEDS: ENTACAPONE 200MG TABLET PO SCH ×3 (09:20→18:04)
[2017-04-19] MEDS: APIXABAN 5 MG TABLET PO SCH ×2 (09:21→21:58)
[2017-04-19] MEDS: FENOFIBRATE NANOCRYSTALLIZED 145MG TABLET PO SCH (09:21)
[2017-04-19] MEDS: ACETAMINOPHEN 325MG TABLET PO PRN ×2 (09:21→18:03)
[2017-04-19] MEDS: INSULIN LISPRO 100 UNITS/ML SUBCUT SCH ×4 (09:22→22:03)
[2017-04-19] MEDS: REPAGLINIDE 1MG TABLET PO SCH ×3 (09:43→18:03)
[2017-04-19] MEDS: BENZTROPINE MESYLATE 1MG TABLET PO SCH ×3 (09:43→18:03)
[2017-04-19] MEDS: EZETIMIBE 10MG TABLET PO SCH (21:53)
[2017-04-19] MEDS: CEFTRIAXONE 1 G PREMIX 50 ML IV SCH (21:53)
[2017-04-19] MEDS: DOXAZOSIN MESYLATE 2MG TABLET PO SCH (21:58)
[2017-04-19] MEDS: ATORVASTATIN CALCIUM 20MG TABLET PO SCH (21:58)
[2017-04-20] VITALS (12 sets, daily range): BP systolic 85–149; BP diastolic 44–89
[2017-04-20] MEDS: DEXT 5%/0.45% NACL 1000ML 1,000 ML IV SCH ×2 (03:14→14:48)
[2017-04-20] MEDS: ACETAMINOPHEN 325MG TABLET PO PRN ×3 (03:15→21:44)
[2017-04-20] MEDS: BLOOD SUGAR DIAGNOSTIC STRIP TEST SCH ×3 (08:02→18:17)
[2017-04-20] MEDS: FENOFIBRATE NANOCRYSTALLIZED 145MG TABLET PO SCH (08:46)
[2017-04-20] MEDS: CARBIDOPA/LEVODOPA 25/100MG TABLET PO SCH ×4 (08:46→21:44)
[2017-04-20] MEDS: MULTIVITAMINS,THER W-MINERALS TABLET PO SCH (08:47)
[2017-04-20] MEDS: ASCORBIC ACID 250 MG TABLET PO SCH (08:47)
[2017-04-20] MEDS: APIXABAN 5 MG TABLET PO SCH ×2 (08:47→21:44)
[2017-04-20] MEDS: QUETIAPINE FUMARATE 25MG TABLET PO SCH ×2 (08:47→18:18)
[2017-04-20] MEDS: REPAGLINIDE 1MG TABLET PO SCH ×3 (08:47→18:17)
[2017-04-20] MEDS: ENTACAPONE 200MG TABLET PO SCH ×3 (08:47→18:18)
[2017-04-20] MEDS: LACTOBACILLUS GG CAPSULE PO SCH (08:48)
[2017-04-20] MEDS: BENZTROPINE MESYLATE 1MG TABLET PO SCH ×3 (08:48→18:18)
[2017-04-20] MEDS: MIDODRINE HCL 5MG TABLET PO SCH ×3 (08:48→18:17)
[2017-04-20] MEDS: ASPIRIN 81MG EC TABLET PO SCH (08:48)
[2017-04-20] MEDS: INSULIN LISPRO 100 UNITS/ML SUBCUT SCH ×3 (08:49→18:20)
[2017-04-20] MEDS: DOXAZOSIN MESYLATE 2MG TABLET PO SCH (21:43)
[2017-04-20] MEDS: EZETIMIBE 10MG TABLET PO SCH (21:44)
[2017-04-20] MEDS: ATORVASTATIN CALCIUM 20MG TABLET PO SCH (21:44)
[2017-04-20] MEDS: CEFTRIAXONE 1 G PREMIX 50 ML IV SCH (21:45)
[2017-04-21] VITALS (12 sets, daily range): BP systolic 93–154; BP diastolic 49–77
[2017-04-21] MEDS: BLOOD SUGAR DIAGNOSTIC STRIP TEST SCH ×4 (00:27→18:00)
[2017-04-21] MEDS: DEXT 5%/0.45% NACL 1000ML 1,000 ML IV SCH ×2 (00:34→12:10)
[2017-04-21] MEDS: INSULIN LISPRO 100 UNITS/ML SUBCUT SCH ×4 (05:34→17:35)
[2017-04-21] MEDS: QUETIAPINE FUMARATE 25MG TABLET PO SCH ×2 (08:16→17:33)
[2017-04-21] MEDS: APIXABAN 5 MG TABLET PO SCH (08:16)
[2017-04-21] MEDS: REPAGLINIDE 1MG TABLET PO SCH ×3 (08:16→17:31)
[2017-04-21] MEDS: ASCORBIC ACID 250 MG TABLET PO SCH (08:16)
[2017-04-21] MEDS: LACTOBACILLUS GG CAPSULE PO SCH (08:17)
[2017-04-21] MEDS: ASPIRIN 81MG EC TABLET PO SCH (08:17)
[2017-04-21] MEDS: MULTIVITAMINS,THER W-MINERALS TABLET PO SCH (08:17)
[2017-04-21] MEDS: CARBIDOPA/LEVODOPA 25/100MG TABLET PO SCH ×3 (08:17→17:32)
[2017-04-21] MEDS: ENTACAPONE 200MG TABLET PO SCH ×3 (08:18→17:31)
[2017-04-21] MEDS: BENZTROPINE MESYLATE 1MG TABLET PO SCH ×3 (08:18→17:32)
[2017-04-21] MEDS: FENOFIBRATE NANOCRYSTALLIZED 145MG TABLET PO SCH (08:18)
[2017-04-21] MEDS: MIDODRINE HCL 5MG TABLET PO SCH ×3 (08:18→17:32)
[2017-04-21] MEDS ORDERED: SODIUM CHLORIDE 0.9% 10ML VIAL ONE (10:50)
[2017-04-21] MEDS ORDERED: SIMETHICONE 40 MG/0.6 ML 30ML ONE (10:50)
[2017-04-21] MEDS ORDERED: FLUCONAZOLE 200MG TABLET NG SCH (14:45)
[2017-04-25] MEDS ORDERED: APIXABAN 5 MG TABLET PO SCH (09:00)
== END 2017-04-21 19:55 | DRG 871 ==
LOC: ER 15:06 → 5EST 16:56 → EDBEDREQSVC 17:00 → EDBEDREQ 17:00 → EDBEDREQTM 17:00 → EDBEDREQ 17:36 → EDBEDREQSVC 17:36 → SUPCPDRO 19:06 → ENRESERV 19:33 → 5EST 20:39
PROVIDERS: ADMIT Internal Medicine Critical Care Medicine; ATTEND Internal Medicine Critical Care Medicine
PROC: 0DH68UZ Insertion of Feeding Device into Stomach, Via Natural or Artificial Opening Endoscopic (ICD-10-PCS; principal; 2017-04-17 18:00)
DX: A41.9 Sepsis, unspecified organism (principal); G93.41 Metabolic encephalopathy; E43 Unspecified severe protein-calorie malnutrition; I82.401 Acute embolism and thrombosis of unspecified deep veins of right lower extremity; E87.0 Hyperosmolality and hypernatremia; R13.12 Dysphagia, oropharyngeal phase; G20 Parkinson's disease; E11.9 Type 2 diabetes mellitus without complications; R64 Cachexia; E46 Unspecified protein-calorie malnutrition; N39.0 Urinary tract infection, site not specified; E78.00 Pure hypercholesterolemia, unspecified; E86.0 Dehydration; E86.1 Hypovolemia; F41.9 Anxiety disorder, unspecified; G24.9 Dystonia, unspecified; G47.00 Insomnia, unspecified; I10 Essential (primary) hypertension; F02.80 Dementia in other diseases classified elsewhere, unspecified severity, without behavioral disturbance, psychotic disturbance, mood disturbance, and anxiety; J44.9 Chronic obstructive pulmonary disease, unspecified; K29.70 Gastritis, unspecified, without bleeding; R32 Unspecified urinary incontinence; R62.7 Adult failure to thrive; Z87.01 Personal history of pneumonia (recurrent); Z90.49 Acquired absence of other specified parts of digestive tract
CPT/HCPCS: 36415; 36600; 70450; 71010; 80048; 80053; 81001; 82140; 82375; 82550; 82805; 82962; 83880; 84443; 84484; 85025; 85610; 87040; 87086; 92610; 93005; 96360; 99285; A4216; A6261; J0696; J1815; J2250; J2405; J3010; J3490; J7030; A4315